=== PATIENT | female | born 1975 | race Two or more races ===

== ENCOUNTER 2017-03-05 00:31 | Emergency (ER) | payer OTHER ==
[~2017-03-05] VITALS: Ht 154.9 cm; Wt 64.3 kg
[2017-03-05] MEDS ORDERED: ACETAMINOPHEN 325 MG TABLET ONE (01:15)
[2017-03-05] MEDS ORDERED: KETOROLAC 30 MG/1 ML ONE (01:15)
[2017-03-05] MEDS ORDERED: DEXAMETHASONE 4 MG/ML, 1ML ONE (01:16)
[2017-03-05] MEDS ORDERED: SODIUM CHLORIDE FLUSH 10ML SYR IVF ONE (01:30)
[2017-03-05] MEDS ORDERED: DEXAMETHASONE 4 MG/ML, 1ML IV ONE (01:30)
[2017-03-05] MEDS ORDERED: KETOROLAC 30 MG/1 ML IVPush ONE (01:30)
[2017-03-05] MEDS ORDERED: ACETAMINOPHEN 325 MG TABLET PO ONE (01:30)
[2017-03-05] MEDS ORDERED: AMPICILLIN/SULBACTAM 3 GM IV ONE (01:30)
[2017-03-05] MEDS ORDERED: SODIUM CHLORIDE 0.9% 1,000ML IVBOLUS ONE (01:30)
[2017-03-05 02:44] VITALS: BP 105/59
== END 2017-03-05 02:52 | disposition home or self-care (01) ==
LOC: ED 02:46
DX: J02.0 Streptococcal pharyngitis (principal)
CPT/HCPCS: 96361; 96374; 96375; 99284; J0295; J1100; J1885; J7030

== ENCOUNTER → 2018-03-17 | Outpatient (CLI) | payer OTHER | END | disposition home or self-care (01) | LOC: CFH 14:28 | PROVIDERS: ATTEND Internal Medicine | DX: M48.02 Spinal stenosis, cervical region (principal); R51 Headache; M47.892 Other spondylosis, cervical region | CPT/HCPCS: 70551; 72141 ==